=== PATIENT | male | born 1970 | race Caucasian/White ===

== ENCOUNTER 2017-08-03 22:15 | Emergency (ER) | payer SELFPAY ==
--- NOTE | 2017-08-03 22:31 | ED PDOC ---
HPI: Abdomen Chief Complaint (Provider): Nausea/Vomiting History Per: Patient History/Exam Limitations: no limitations Onset/Duration Of Symptoms: Days (1) Outside of [place] travel?: No Current Symptoms Are (Timing): Still Present Context: Food Severity: Moderate Location Of Pain/Discomfort: RUQ, Epigastric Associated Symptoms: Chills, Nausea, Vomiting. denies: Fever, Diarrhea, Loss Of Appetite <Rosas Peterson - Last Filed: 08/04/17 00:41> <Ladi York - Last Filed: 08/04/17 04:16> Time Seen by Provider: 08/03/17 22:25 Chief Complaint (Nursing): GI Problem Additional Complaint(s): 47 y/o M with unremarkable PMH presents to ER with 1 day history of nausea and vomiting. Patient states symptoms started gradually after having a "oily pizza" the night prior to assessment. He woke up with continued abdominal discomfort and then started vomiting shortly after. He has vomited a total of 3 times since then, last episode just prior to assessment. Emesis has been non-bloody, non-bilious and patient has been unable to tolerate PO. He reports associated chills but denies headache, dizziness, chest pain, sob or diarrhea. He has no known sick contacts or travel outside of the country and has not experienced similar symptoms in the past. (Rosas Peterson) Supervising Attending Note - Supervising Attending Note The Documented history was done by the: Physician Cable Television Line Technician, Attending Physician The documented physical exam was done by the: Physician Cable Television Line Technician, Attending Physician The documented procedures were done by the: Physician Cable Television Line Technician, Attending Physician - Attestation: I have personally seen and examined this patient.: Yes I have fully participated in the care of the patient.: Yes I have reviewed all pertinent clinical information: Yes <Ladi York - Last Filed: 08/04/17 04:16> Past Medical History Reviewed: Nursing Documentation, Vital Signs - Medical History PMH: No Chronic Diseases - Surgical History Surgical History: Appendectomy - Family History Family History: States: No Known Family Hx - Social History Current smoker - smoking cessation education provided: Yes (3/4 PPD) Alcohol: None Drugs: Denies <Rosas Peterson - Last Filed: 08/04/17 00:41> <Ladi York - Last Filed: 08/04/17 04:16> Vital Signs: Last Vital Signs Temp 97.6 F 08/03/17 22:16 Pulse 81 08/03/17 22:16 Resp 18 08/03/17 22:16 BP 130/77 08/03/17 22:16 Pulse Ox 98 08/04/17 00:43 - Home Medications Home Medications: Ambulatory Orders Medication Instructions Recorded Ondansetron ODT [Zofran ODT] 4 mg PO Q8 PRN #12 odt 08/04/17 - Allergies Allergies/Adverse Reactions: Allergies Allergy/AdvReac Type Severity Reaction Status Date / Time No Known Allergies Allergy Verified 08/03/17 22:16 Review of Systems ROS Statement: Except As Marked, All Systems Reviewed And Found Negative <Rosas Peterson - Last Filed: 08/04/17 00:41> Physical Exam - Reviewed Vital Signs Reviewed: Yes (afebrile) - Physical Exam Appears: Positive for: No Acute Distress, Uncomfortable Head Exam: Positive for: ATRAUMATIC, NORMAL INSPECTION, NORMOCEPHALIC Skin: Positive for: Normal Color, Warm, Dry ENT: Positive for: Other (Mucus membranes dry) Cardiovascular/Chest: Positive for: Regular Rate, Rhythm, Chest Non Tender. Negative for: Murmur Respiratory: Positive for: Normal Breath Sounds. Negative for: Crackles, Stridor, Wheezing, Respiratory Distress Pulses-Radial (L): 2+ Pulses-Radial (R): 2+ Gastrointestinal/Abdominal: Positive for: Bowel Sounds (Regular), Soft, Tenderness (RUQ tenderness). Negative for: Distended, Rebound Extremity: Negative for: Tenderness, Pedal Edema Neurologic/Psych: Positive for: Alert, Oriented <Rosas Peterson - Last Filed: 08/04/17 00:41> - Laboratory Results Result Diagrams: 08/03/17 22:45 08/03/17 22:45 - ECG O2 Sat by Pulse Oximetry: 98 <Rosas Peterson - Last Filed: 08/04/17 00:41> - Laboratory Results Result Diagrams: 08/03/17 22:45 08/03/17 22:45 - Progress Re-evaluation Time: 04:15 Condition: Re-examined, Improved <Ladi York - Last Filed: 08/04/17 04:16> - Progress ED Course And Treament: 23:45 - Patient continues to experience nausea and had episode of emesis. Additional dose of Zofran 4mg IV ordered. 00:40 - Abd U/S detects normal gallbladder without stones or CBD dilation. Incidental, non-obstructed right kidney stone detected. Nausea has improved significantly. Patient requesting water. Will try PO challenge. (Rosas Peterson) Medical Decision Making <Rosas Peterson - Last Filed: 08/04/17 00:41> <Ladi York - Last Filed: 08/04/17 04:16> Medical Decision Making: FINDINGS: Lower thorax: There is subpleural atelectasis of the dependent portions of the lungs. ABDOMEN: Liver: There is a focal liver hypodensity that cannot be further characterized on the current examination. Gallbladder and bile ducts: The gallbladder is normal. There is no evidence of biliary ductal dilation. No calcified stones. Pancreas: The pancreas is normal. No ductal dilation. Spleen: The spleen is normal. Adrenals: The adrenal glands are normal. Kidneys and ureters: The kidneys are normal. No hydronephrosis. Stomach and bowel: There is nonspecific bowel wall thickening. This may be related to incomplete distention or enteritis in the appropriate clinical setting. The duodenum is unremarkable. [facility] | Preliminary Radiology Report HOME HEALTH AID (QA) DISCREPANCY? If there is a discrepancy between the preliminary and final interpretation, please notify ad via [email or web address]. If you do not have access to our QA portal, call our QA team at [phone] CONFIDENTIALITY STATEMENT This report is intended only for the use of the referring physician, and only in accordance with law, If you received this in error, call [phone] Page 2 of 2 Appendix: No findings to suggest acute appendicitis. PELVIS: Bladder: The bladder is normal. Reproductive: The prostate gland demonstrates nonspecific parenchymal calcifications. ABDOMEN and PELVIS: Intraperitoneal space: Normal. No free air. No significant fluid collection. Bones/joints: No acute fracture. No dislocation. Soft tissues: Normal. Vasculature: Normal. No abdominal aortic aneurysm. Lymph nodes: Normal. No enlarged lymph nodes. IMPRESSION: There is nonspecific small bowel wall thickening. This may be related to incomplete distention or enteritis in the appropriate clinical setting. Clinical correlation is advised. (Ladi York) Disposition <Rosas Peterson - Last Filed: 08/04/17 00:41> - Patient ED Disposition Is Patient to be Admitted: No Doctor Will See Patient In The: Office Counseled Patient/Family Regarding: Studies Performed, Diagnosis, Need For Followup - Disposition Disposition: Routine/Home Disposition Time: 04:15 <Ladi York - Last Filed: 08/04/17 04:16> - Clinical Impression Clinical Impression: Vomiting - Disposition Referrals: [facility] [Outside] Condition: GOOD Additional Instructions: Take your medications as instructed. Follow up with your PCP in 2-3 days. Prescriptions: Ondansetron ODT [Zofran ODT] 4 mg PO Q8 PRN #12 odt PRN Reason: Nausea/Vomiting Instructions: Acute Nausea and Vomiting (ED)
[2017-08-03] MEDS ORDERED: Sodium Chloride 0.9% 1,000 ML IV SCH (22:45)
[2017-08-03 23:10] LABS: BASO % 0.2 % (0.0-2.0); EOS # 0.1 K/uL (0.0-0.7); HEMATOCRIT 56.1 % (35.0-51.0); LYMPH # 0.8 K/uL (1.0-4.3); LYMPH % 5.7 % (20.0-40.0); MEAN CELL VOLUME 88.1 fl (80.0-94.0); MEAN CORPUSCULAR HEMOGLOBIN 28.9 pg (27.0-31.0); MEAN CORPUSCULAR HGB CONC 32.8 g/dL (33.0-37.0); MEAN PLATELET VOLUME 9.5 fl (7.2-11.7); MONO # 0.5 K/uL (0.0-0.8); MONO % 3.2 % (0.0-10.0); NEUT # 12.8 K/uL (1.8-7.0); NEUT % 89.9 % (50.0-75.0); NRBC % 0.5 % (0.0-0.0); PLATELET COUNT 238 K/uL (130-400); RED CELL DISTRIBUTION WIDTH 14.4 % (11.5-14.5); WHITE BLOOD COUNT 14.2 K/uL (4.8-10.8)
[2017-08-03 23:21] LABS: ALB/GLOB RATIO 1.3 (1.0-2.1); ALKALINE PHOSPHATASE 74 U/L (38-126); ALT/SGPT 53 U/L (21-72); AST/SGOT 42 U/L (17-59); BLOOD UREA NITROGEN 21 mg/dl (9-20); CALCIUM 10.2 mg/dL (8.4-10.2); CARBON DIOXIDE 25 mmol/L (22-30); CHLORIDE 102 mmol/L (98-107); GFR AFRICAN-AMERICAN > 60; GLUCOSE,RANDOM 112 mg/dL (75-110); LIPASE 91 U/L (23-300); POTASSIUM 4.4 MMOL/L (3.6-5.0); SODIUM 145 mmol/l (132-148); TOTAL PROTEIN 8.7 G/DL (6.3-8.2)
[2017-08-04 01:16] LABS: EOSINOPHIL 1 % (0-7); NEUTROPHIL 85 % (42-75); TOTAL CELLS COUNTED 100
[2017-08-04] MEDS ORDERED: Sodium Chloride 0.9% 1,000 ML IV SCH (02:00)
[2017-08-04] MEDS ORDERED: Sodium Chloride 0.9% 50 ML IV ONE (02:04)
[2017-08-04] MEDS ORDERED: Iohexol 300 100 ML IJ ONE (02:04)
[2017-08-04 04:27] VITALS: BP 119/70; PULSE 85; RESP 16; TEMP 98.1; O2SAT 99
--- NOTE | 2017-08-04 09:08 | CT ---
PROCEDURE: CT Abdomen and Pelvis with contrast HISTORY: Persistent nausea and vomiting COMPARISON: None. TECHNIQUE: CT scan of the abdomen and pelvis was performed after intravenous administration of contrast. Oral contrast was not administered. Coronal and sagittal reformatted images were obtained. Contrast dose: 95 mL Omnipaque 300 Radiation dose: Total exam DLP = 533.16 mGy-cm. This CT exam was performed using one or more of the following dose reduction techniques: Automated exposure control, adjustment of the mA and/or kV according to patient size, and/or use of iterative reconstruction technique. FINDINGS: LOWER THORAX: There is bibasilar subsegmental atelectasis. LIVER: The liver is normal in size and there is homogeneous enhancement. There is a 5 mm simple cyst in the right hepatic lobe. No intrahepatic biliary ductal dilatation. GALLBLADDER AND BILE DUCTS: There are no calcified gallstones. PANCREAS: The pancreas is normal in size and there is homogeneous enhancement without ductal dilatation or calcifications. SPLEEN: The spleen is normal in size and there is homogeneous enhancement without focal lesion. ADRENALS: Both adrenal glands are normal in size without discrete nodule. KIDNEYS AND URETERS: Both kidneys are normal in size and there is homogeneous enhancement without mass or hydronephrosis. There is a tiny simple cyst in the upper pole of the left kidney posteriorly. VASCULATURE: No aortic aneurysm. BOWEL: The mid small bowel loops are fluid-filled and mildly dilated. There is moderate amount of stool in the colon. No bowel dilatation or obstruction. APPENDIX: The appendix is not visualized however there are no inflammatory changes in the right lower quadrant. PERITONEUM: No free fluid. No free air. LYMPH NODES: No enlarged lymph nodes. BLADDER: Well distended and grossly normal in appearance. REPRODUCTIVE: The prostate gland is normal in size and there are central coarse calcifications BONES: No acute fracture. Within normal limits for the patient's age. OTHER FINDINGS: There is a small sliding hiatal. IMPRESSION: Mildly dilated fluid-filled mid small bowel loops may represent nonspecific enteritis. No evidence of bowel obstruction. A preliminary report was provided by [facility].
--- NOTE | 2017-08-04 10:38 | US ---
HISTORY: ruq pain COMPARISON: None. TECHNIQUE: Sonographic evaluation of the right upper quadrant of the abdomen. FINDINGS: LIVER: Measures 15.8 cm in length. Normal echogenicity of the liver parenchyma. There is a 2.1 cm homogeneously hyperechoic lesion in the right hepatic lobe. . No intrahepatic bile duct dilatation. GALLBLADDER: Unremarkable. No gallstones. COMMON BILE DUCT: Measures 4 mm. No stones. No dilatation. PANCREAS: Unremarkable as visualized. No mass. No ductal dilatation. RIGHT KIDNEY: Measures 11.5 cm in length. There is a prominent echogenic area in the interpolar region. Normal echogenicity. No mass, or hydronephrosis. AORTA: No aneurysmal dilatation. IVC: Unremarkable. OTHER FINDINGS: None . IMPRESSION: Suspect 2.1 cm hemangioma in the right hepatic lobe. No definite evidence for nephrolithiasis. The echogenic area in the right kidney described on preliminary report likely represents prominent renal sinus fat as no corresponding stone is identified on CT scan. A preliminary report was provided by [facility].
--- NOTE | 2017-08-05 09:43 | CARD ---
APPROVED REPORT EKG Measurement Heart [id number] <Conclusion> Normal sinus rhythm with sinus arrhythmia Possible Left atrial enlargement Nonspecific ST and T wave abnormality Abnormal ECG
== END 2017-08-04 04:28 | disposition home or self-care (01) ==
LOC: H.ER 22:15
DX: R10.13 Epigastric pain (principal); R11.10 Vomiting, unspecified
CPT/HCPCS: 74177; 76705; 80053; 83690; 85025; 93005; 96374; 99284; J2405; J7040; Q9967